=== PATIENT | female | born 2005 | race Caucasian/White ===

== ENCOUNTER 2025-04-09 15:51 | Emergency (ER) | payer BC, SELFPAY ==
[2025-04-09] VITALS (10 sets, daily range): BP systolic 98–131; BP diastolic 66–73; PULSE 80–108; RESP 11–24; O2SAT 98–100
--- NOTE | ~2025-04-09 | XR_ITS ---
EXAMINATION: XR chest 2V DATE: 04/09/2025 16:32 INDICATION: Syncope TECHNIQUE: PA and lateral views of the chest were obtained. COMPARISON: None FINDINGS: The lungs are clear with no focal airspace opacities, pulmonary edema, pleural effusion or pneumothor ax. The cardiomediastinal silhouette is normal. Visualized bones and soft tissues are unremarkable. IMPRESSION: 1. Normal chest radiograph. Reviewed, dictated and finalized at location A. IMPRESSION: 1. Normal chest radiograph.
--- NOTE | 2025-04-09 15:52 | ECG_ITS ---
Test Date: 2025-04-09 16:03:29 Measurements Intervals [place] Rate: 93 P: 75 NE: 118 QRS: 66 QRSD: 74 T: 48 QT: 334 QTc: 417 Interpretive Statements SINUS RHYTHM WITH SHORT NE INTERVAL WITH OCCASIONAL SUPRAVENTRICULAR PREMATURE COMPLEXES POSSIBLE LEFT ATRIAL ENLARGEMENT MINIMAL Q WAVES- ANTEROLAT/INF LEADS BORDERLINE ECG No previous ECG available for comparison Electronically Signed On 04-09-2025 16:15:41 CDT by Gregory Clark D.O.
--- OUTSIDE RECORDS SUMMARY | 2025-04-09 15:53 | XMS_ITS | Continuity of Care Document ---
Author Organization [employer] Address [address] [place] [address] Phone Care Team Providers Care Change Person Name Role Phone Torsten Gee MD Unavailable Unavailable Allergies, Adverse Reactions, Alerts Substance Reaction Status Criticality No Known Allergies Active No Inform ation Medications Medication Instructions Dosage Effective Dates (start - stop) Status Comments DIFFERIN (unknown strength) Not Available - Active Procedures Procedure Date OFFICE [id number] BODY MASS INDEX DOCD MOUTHPIECE RESPIRATORY FLOW VOLUME LOOP SPIROMETRY BEFORE & AFTER BRONCHODIALATO R Advance Directives Directive Yes / No Effective Date File Name No Information Encounters Encounter Description Practice Location Reason(s) For Visit Diagnoses Date Provider Providers Copied on Encounter OFFICE [id number] P-MED [facility], [address], [place], [place], [id number], tel:[phone] [facility] Asthma Allergy [place] breathing difficulty (chief complaint) Vocal cord dysfunction Gerard Sarmiento. [address], [id number] , [place]. tel:[phone] Referring Provider: Emma Diaz, [address] [facility] [address], [place], [address]. tel:[phone] Family History Family Member Type Diagnosis Age At Onset No Information Payers Payer name Insurance type Covered republican ID Authoriza tion(s) [facility] [id number] Social History Type Description Quantity Date Captured Comments Alcohol Use Details Unknown Caffeine Use Details Unknown Tobacco Use Status Current non-smoker Smoking Status Never smoker Non-Smoking Tobacco Use Details : No Details Available : No Details Available Sex Female Vital Signs Date / Time: Height Weight BMI Pulse Rate Blood Pressure Temperature Respiratory Rate Body Surface Area Head Circumference Head Circ. Percentile Wt./Servando. Percentile BMI percentile Pulse Ox Inhaled Ox 1:28 PM 67.00 in 47.627 kg (105.00 lbs) 16.4 5 kg/m eter (2) 86 /min 106/63 mm[Hg] 98.60 F 6 99 % Chief Complaint And Reason For Visit From encounter dated '09/26/2020 13:20'. breathing difficulty (chief complaint) Reason For Referral Reason For Referral No Information History Of Present Illness Encounter Date Complaint History Of Prese nt Illness breathing difficulty breathing difficulty (comments) Trouble breathing with exercise onlyStarted several years ago and usually able to push through thisWorse in the 6 months. Home for COL[place], just starting to play basketball again (has been off track although tries to remain active in other ways)Private lesson with her BB coachAnd within 20 minutes felt like she was going to vomit, dizziness, cross eyes, along with gasping and gulping for air within a few minutes. Tight feeling in her upper airway, no cough, just SOB. Takes about 2 hours to get back to normal. Most episodes last only about 30 minutes though. No stridor, but full body breathing effort with hands on hips, shoulders set. Has trouble swallowing saliva. No accessory muscle use though. Has most of the difficulty on the breath in. No trouble talking with these episodes. No problems during URIs, or at night or awakeningMom recalls she had an inhaler around the age of 4-5 y/o but never seemed to need it. Had been seen in ER and noted low oxygen and fainting episode. May have had an infection at the time. No medications at this time. Wearing a brace for pectus carinatum.Had a normal ECHO a few months ago for rule out Marfan's.No PFTs in past. CXR was recently normal Functional Status Date Functional Assessmen t No Information Instructions Date Instruction Additional Infor maldonado Pulmonary functions performed today with good effort were WITHIN NORMAL LIMITS for age and height with no clipping on the inspiratory loop and no change in expiratory flows following bronchodilator. History and today's findings fit best with vocal cord dysfunction (aka, paradoxical vocal fold movement).Given information on VCD and discussed treatment options including vocal cord relaxation exercise and speech therapy. Overall good prognosis.Will not benefit from asthma therapy/medications.Call if further problems after seeing speech therapy. Related to Vocal cord dysfunction Disease process Assessments Type Assessment Date assessment Vocal cord dysfunction 21 Patient Care Teams Name Effective Dates (start - stop) Status Members No Information
--- OUTSIDE RECORDS SUMMARY | 2025-04-09 15:53 | XMS_ITS | Encounter Summary ---
Author Organization [facility] Address [address] [place], [place] [address] [address] Care Team Providers Care Technical Service Engineer Name Role Phone Emma Diaz MD Primary Care Provider [phone] Emma Diaz MD Unavailable [phone] Encounter Details Date Type Department Care Team (Late st Contact Info) Description 03/02/2025 Results Follow-Up [facility] Medical [facility] - Pediatrics [address] [place] [phone] mEma Diaz MD [address] [place] [phone] Social History Tobacco Use Types Packs/Day Years Used Date Smoking Tobacco: Never Smokeless Tobacco: Never Alcohol Use Standard Drinks/Week Comments No 0 (1 standard drink = 0.6 oz pur e alcohol) PHQ-2 Answer Date Recorded Patient Health Questionnaire-2 Score 0 11/19/2023 Comments Unknown Sex and Gender Information Value Date Recorded Sex Assigned at Not on file 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 Author Medication Management General Cookie Rodriguez, RN Note: Expected end date: Ongoing Interventions: Take all medications as prescribed Let your doctor know right away about any changes in your medications Make sure to request a refill of your medication at least one week prior to your last dose Use safety retraint in car Lifestyle On track( 022 1:47 PM CDT) Yvonne Winter, [place] documented as of this encounter Visit Diagnoses Not on filedocumented in this encounter Care Teams Technical Service Engineer Relationship Specialty Start Date End Date Emma Diaz MD PCP - General 06/08/20 Emma Diaz MD Pediatrics 06/08/20 documented as of this encounter
--- OUTSIDE RECORDS SUMMARY | 2025-04-09 15:53 | XMS_ITS | Encounter Summary ---
Author Organization [facility] Address [address] [place] [address] [place] [address] Care Team Providers Care Edge Cutting Machine Operator Name Role Phone Emma Diaz MD Primary Care Provider [phone] Emma Diaz MD Unavailable Reason for Visit * Reason Comments Medication Check control Encounter Details Date Type Department Care Team (Late st Contact Info) Description 04/08/2025 11:20 AM CDT Office Visit [facility] Medical [facility] - Pediatrics [address] [place] [address] [address] [place] [address] Emma Diaz MD [address] [place] [address] Anemia, unspecified type (Primary Dx); Syncope, unspecified syncope type; Closed fracture of left side of mandible with routine healing, unspecified mandibular site, subsequent encounter; Dermatitis Social History Tobacco Use Types Packs/Day Years Used Date Smoking Tobacco: Never Smokeless Tobacco: Never Alcohol Use Standard Drinks/Week Comments No 0 (1 standard drink = 0.6 oz pur e alcohol) PHQ-2 Answer Date Recorded Patient Health Questionnaire-2 Score 0 04/08/2025 Comments Unknown Sex and Gender Information Value Date Recorded Sex Assigned at Not on file 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 Gender Identity Not on file Sexual Orientation Not on file documented as of this encounter Last Filed Vital Signs Vital Sign Reading Time Taken Comments Blood Pressure 114/62 04/08/2025 11:17 AM CDT Pulse 115 04/08/2025 11:17 AM CDT Temperature 36 C (96.8 F) 04/08/2025 11:17 AM CDT Respiratory Rate - - Oxygen Saturation 99% 04/08/2025 11: 17 AM CDT Inhaled Oxygen Concentration - - Weight 51.2 kg (112 lb 12.8 oz) 025 11:17 AM CDT Height 171.5 cm (5' 7.52) 04/08/2025 1 1:17 AM CDT Body Mass Index 17.4 04/08/2025 11:17 AM CDT documented in this encounter Functional Status * Over the past 2 weeks, how often have you been bothered by any of the following problems? Question Answer Date of Assessment Author Little interest or pleasure in doing things Not at all 04/08/2025 11:18 AM CDT Uyen Wiley MA Feeling down, depressed, or hopeless Not at all 04/08/2025 11:18 AM CDT Uyen Wiley MA Patient Health Questionnaire -2 Score 0 04/08/2025 11:18 AM CDT Uyen Wiley MA documented as of this encounter Progress Notes * Emma Diaz MD - 04/08/2025 11:16 AM CDT Pediatric Progress Note Name: Estrella Toure Date of : 2005 Sex: female Age: [age] year old Accompanied by: self Chief Complaint: Chief Complaint Patient presents with Medication Check control History of Present Illness: Estrella Toure, 19 year old, female, here for f/u evaluation of syncope, anemia, dermatitis, and new OCP. Estrella reports dermatitis improved with triamcinolone, no side effects of OCP, and no light-headedness this summer. She began iron supplement in last couple weeks. No new concerns. Medications: Lo-ovral and iron supplement. Problem List[1] Medications[2] Review of Systems: Pertinent items are noted in HPI Allergies[3] Past Medical History[4] EXAM: Vitals: BP 114/62 Pulse (!) 115 Temp 96.8 ??F (36 ??C) Ht 1.715 m (5' 7.52) Wt 51.2 kg (112 lb 12.8 oz) LMP 04/07/2025 SpO2 99% BMI 17.40 kg/m?? Height: 171.5 cm (5' 7.52) Immunizations Up to date: Yes Physical Exam: PE: BP 114/62 Pulse (!) 115 Temp 96.8 ??F (36 ??C) Ht 1.715 m (5' 7.52) Wt 51.2 kg (112 lb 12.8 oz) SpO2 99% General alert, cooperative, no distress Skin Skin color, texture, turgor normal. No rashes or lesions Head NCAT Eyes/Ears sclera and conjunctiva clear bilateral TM's and external ear canals normal Nose/ Throat nose:normal, throat: no erythema or exudates noted. Teeth and gums normal Neck supple, non-tender, with full ROM Nodes no lymphadenopathy Heart regular rate and rhythm, S1, S2 normal, no murmur, click, rub or gallop Lungs clear to auscultation bilaterally Abdomen soft, non-tender, non distended Extremities no cyanosis, edema Office Visit on 04/08/25 HEMOGLOBIN - POINT OF CARE (AMB) Result Value Ref Range Hemoglobin POCT 9.3 (Abnormal) 11.6 - 16.2 gm/dL QC Verified Yes Yes Assessment Plan: 1) Dermatitis - improved with trial 0.1% triamcinolone to bumps on right posterior elbow. Discussedregular applications of moisturizer to prevent recurrence. 2) Menorrhagia - patient tolerating Lo Ovral well. OCP to manage heavy periods and hopefully improve anemia. Referred to Manager Of Enterprise. Will refill for the next 6 months until patient is able to establish withGyn (3 mos supply sent today to cover while away at school) 3) Anemia - symptomatic anemia may be treated with otc Ferrous Sulfate. Will begin with 1 tab po qd, taken with orange juice. Recheck Hgb at f/u visit in August. 4) Syncopal Episode - lack of contributing factors of illness, antecedent trauma, or substance abuse, paired with concurrent menses, make anemia the most likely cause. Will monitor symptoms and consider further evaluation if improvement not noted. 5) Mandibular Fracture and Dental Trauma - ongoing work with local oral surgeon. Patient instructed to call with any concerns or if problems fail to improve with treatment plan. Emma Diaz MD [1] Patient Active Problem List: Vocal cord dysfunction [2] Outpatient Medications Prior to Visit Medication Sig Dispense Refill acetaminophen-codeine (Tylenol #4) 300-60 MG tablet Take 1 (one) tablet by mouth every 6 hours as needed (Patient not taking: Reported on 04/08/2025) amoxicillin-clavulanate (Augmentin) 875-125 MG tablet TAKE 1 TABLET BY MOUTH TWICE DAILY UNTIL GONE(Patient not taking: Reported on 04/08/2025) chlorhexidine (Peridex) 0.12 % solution SWISH AND SPIT 10-15 ML TWICE DAILY HYDROcodone-acetaminophen 7.5-325 MG/15ML solution TAKE 5-10 MLS (2.5-5 MG TOTAL) BY MOUTH EVERY 4 TO 6 HOURS NEEDED FOR PAIN (Patient not taking: Reported on 04/08/2025) ibuprofen (Motrin) 800 MG tablet TAKE 1 TABLET BY MOUTH EVERY 6 HOURS WITH FOOD (Patient not taking: Reported on 04/08/2025) norgestrel-ethinyl estradiol (Lo/Ovral; Low-Ogestrel; Cryselle) 0.3-30 MG-MCG tablet Take 1 (one) tablet by mouth once daily 28 tablet 1 promethazine (Phenergan) 25 MG tablet TAKE 1 TABLET BY MOUTH 1 HOUR PRIOR TO APPOINTMENT THEN 1 TABLET EVERY 6 HOURS NEEDED (Patient not taking: Reported on 04/08/2025) triamcinolone acetonide (Kenalog) 0.1 % ointment Apply to affected area 2 times daily 60 g 0 No facility-administered medications prior to visit. [3] No Known Allergies [4] No past medical history on file. documented in this encounter Plan of Treatment Upcoming Encounters Date Type Department Care Team (Late st Contact Info) Description 05/24/2025 3:30 PM CDT Office Visit [facility] - [address] [place] [phone] documented as of this encounter Goals Goal Patient Goal Type Associated Problems Recent Progress Patient-Stated? Author Medication Management General No Cookie Griffin, RN Note: Expected end date: Ongoing Interventions: Take all medications as prescribed Let your doctor know right away about any changes in your medications Make sure to request a refill of your medication at least one week prior to your last dose Use safety retraint in car Lifestyle On track( 022 1:47 PM CDT) Yvonne Winter RN documented as of this encounter Procedures Procedure Name Priority Date/Time Associated Diagnosis Comments HEMOGLOBIN - POINT OF CARE (AMB) OK Routine 04/08/2025 11:22 AM CDT Anemia, unspecified type documented in this encounter Results * (ABNORMAL) HEMOGLOBIN - POINT OF CARE (AMB) (04/08/2025 11:22 AM CDT) Hemoglobin POCT 9.3(A) 11.6 - 16.2 gm/dL [facility] QC Verified Yes Yes [facility] Blood BLOOD SPECIMEN / Unknown 04/08/2025 11:22 AM CDT Emma Diaz MD LAB - POINT OF CARE ORDERABLE S Final Result [facility] [address] [phone] documented in this encounter Visit Diagnoses Diagnosis Anemia, unspecified type- Primary Syncope, unspecified syncope type Closed fracture of left side of mandible with routine healing, unspecified mandibular site, subsequent encounter Dermatitis Contact dermatitis and other eczema, due to unspecified cause documented in this encounter Care Teams Edge Cutting Machine Operator Relationship Specialty Start Date End Date Emma Diaz MD PCP - General 06/08/20 Emma Diaz MD Pediatrics 06/08/20 documented as of this encounter
--- OUTSIDE RECORDS SUMMARY | 2025-04-09 15:53 | XMS_ITS | Clinical Summary ---
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 Gender Identity Not on file Sexual Orientation Not on file Plan of Treatment Health Maintenance Due Date Last Done Comments Hepatitis C Virus (HCV) Screening 2005 Human Papillomavirus (HPV) Immunization (1 - 3-dose series) 2020 Meningococcal B Immunization (1 of 2 - Standard) 2021 SARS-COV-2 Immunization ( - season) 2024 02/21/2021, 01/31/2021 Influenza Immunization (#1) 2025 05/27/2008, 1 Respiratory Syncytial Virus (RSV) Immunization (Adult) (1 - 1-dose 75+ series) 2080 Hepatitis B Immunization Completed 006, 02/14/2006, 2005 Polio (IPV) Immunization Discontinued 006, 02/14/2006, 2005 Pneumococcal Immunization Combined Completed 10/24/2006, 04/25/2006, 02/14/2006, Additional history exists Hepatitis A Immunization Discontinued 05/12/2007, 10/04 Measles Mumps Rubella (MMR) Immunization Discontinued 11/06/2010, 10/24/2006 Varicella Immunization Discontinued 11/06/2010, 2006 DTaP/Tdap/Td Immunization Discontinued 2016, 11/06/2010, 01/28/2007, Additional history exists Meningococcal Immunization (ACWY) Aged Out 01/31/2017 No longer eligible based on patient's age to complete this topic TdaP Immunization Completed 01/31/2017 Rotavirus Immunization Aged Out No lo nger eligible based on patient's age to complete this topic
--- OUTSIDE RECORDS SUMMARY | 2025-04-09 15:53 | XMS_ITS | Encounter Summary ---
Author Organization [facility] Address [facility] [facility] [place] [address] Care Team Providers Care Vp Clinical Name Role Phone Emma Diaz MD Primary Care Provider [phone] Emma Diaz MD Unavailable [phone] Reason for Visit * Reason Onset Date Comments Follow-up 04/09/2025 Encounter Details Date Type Department Care Team (Late st Contact Info) Description 04/09/2025 Nurse Triage [facility] Medical [facility] - Pediatrics [address] [place] [address] [address] [place] [address] Emma Diaz MD [address] [place] [phone] Follow-up Social History Tobacco Use Types Packs/Day Years Used Date Smoking Tobacco: Never Smokeless Tobacco: Never Alcohol Use Standard Drinks/Week Comments No 0 (1 standard drink = 0.6 oz pur e alcohol) PHQ-2 Answer Date Recorded Patient Health Questionnaire-2 Score 0 04/08/2025 Comments Unknown Sex and Gender Information Value Date Recorded Sex Assigned at Not on file 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 Was she feeling well, playing pickle ball, and then had a second collapse with loss of consciousness? That may be best addressed in theER today and include an EKG. Reached patient again. She states that yesterday afternoon was playing pickle ball for 20 min with mild intensity-all of asudden felt dizzy-patient told friends that she was was going to sit down and does not remember what happened next. Woke up with friends standing over her. LOC lasted for 34 seconds per friends that were with her and Estrella states that her friends told her that her mouth twisted while was out and legs jerked. No care sought at time of incident or since and no sxs since incident and no sxs at this time. Patient in agreement that will go to ED at this time for assessment and follow up as directed-this update sent to Dr. Diaz. * Telephone Encounter - Beatriz Mitchell RN - 04/09/2025 1:[address] Diaz: I would suggest doubling her iron supplementation this month unless it causes G.I. upset. If she had a true loss of consciousness last night, I think we should get an EKG as well. Patient reached again. Verbalizes understanding of orders related to iron and states that yes was a LOC-would like the EKG. Consulting with Dr. Diaz on where would like to send order/can we complete in office or should werefer to cardiology? This note transferred-awaiting orders.... * Telephone Encounter - Beatriz Mitchell RN - 04/09/2025 12:16 PM CDT Patient states that she is not having sxs now but calling to report LOC/fainting while playing pickle ball last night. Lasted for 34 seconds. Again denies sxs at this time. Patient seen in office yesterday and syncope and anemia discussed and plan of care est with PCP. Reviewed in office plan of care as noted by Dr. Diaz with patient during call. Patient verbalizes understanding of plan of care. This note sent to Dr. Diaz (PCP) and in office provider (SUPERVISOR [employer] Himanshu) for update and to determine ifany changes to plan or additional orders.... documented in this encounter Plan of Treatment Upcoming Encounters Date Type Department Care Team (Late st Contact Info) Description 05/24/2025 3:30 PM CDT Office Visit [facility] - [address] [phone] documented as of this encounter Goals Goal [...] track( 022 1:47 PM CDT) Yvonne Winter, RN documented as of this encounter Visit Diagnoses Not on filedocumented in this encounter Care Teams Vp Clinical Relationship Specialty Start Date End Date Emma Diaz MD PCP - General 06/08/20 Emma Diaz MD Pediatrics 06/08/20 documented as of this encounter
--- OUTSIDE RECORDS SUMMARY | 2025-04-09 15:53 | XMS_ITS | Clinical Summary ---
Author Organization [facility] Address [address] [place] [address] Care Team Providers Care Denture Processor Name Role Phone Emma Diaz MD Primary Care Provider [phone] Emma Diaz MD Unavailable [phone] Source Comments [facility],non-owned Affiliates and Associated Physician Practices is amultiple site organization consisting of ambulatory clinics and hospital sitesin [place], [place], [place] and [place]. This disclosure is being madepursuant to the Care Everywhere program and may not contain all information available regarding this patient. Last updated 18.[facility] [employer] Allergies No known active allergies Medications * Be aware that medications may not be up to date on this document. Alwaysverify current medications with the patient. triamcinolone acetonide (Kenalog) 0.1 % ointment Apply to affected area 2 times daily 60 g 5 Active norgestrel-ethi nyl estradiol (Lo/Ovral; Low-Ogestrel; Cryselle) 0.3-30 MG-MCG tablet Take 1 (one) tablet by mouth once daily 28 tablet 1 5 Active acetaminophen-c odeine (Tylenol #4) 300-60 MG tablet Take 1 (one) tablet by mouth every 6 hours as needed 4 Active amoxicillin-cla vulanate (Augmentin) 875-125 MG tablet TAKE 1 TABLET BY MOUTH TWICE DAILY UNTIL GONE 5 Active chlorhexidine (Peridex) 0.12 % solution SWISH AND SPIT 10-15 ML TWICE DAILY 5 Active HYDROcodone-guy taminophen 7.5-325 MG/15ML solution TAKE 5-10 MLS (2.5-5 MG TOTAL) BY MOUTH EVERY 4 TO 6 HOURS NEEDED FOR PAIN 5 Active ibuprofen (Motrin) 800 MG tablet TAKE 1 TABLET BY MOUTH EVERY 6 HOURS WITH FOOD 4 Active promethazine (Phenergan) 25 MG tablet TAKE 1 TABLET BY MOUTH 1 HOUR PRIOR TO APPOINTMENT THEN 1 TABLET EVERY 6 HOURS NEEDED 4 Active norgestrel-ethi nyl estradiol (Lo/Ovral; Low-Ogestrel; Cryselle) 0.3-30 MG-MCG tablet Take 1 (one) tablet by mouth once daily 84 tablet 4 5 Active Active Problems Problem Noted Date Diagnosed Date Vocal cord dysfunction 08/30/2022 Encounters Date Type Department Care Team Description 04/09/2025 Nurse Triage [address] [address] Emma Diaz MD Follow-up 04/08/2025 11:20 AM CDT Office Visit [address] [address] Emma Diaz MD Anemia, unspecified type (Primary Dx); Syncope, unspecified syncope type; Closed fracture of left side of mandible with routine healing, unspecified mandibular site, subsequent encounter; Dermatitis 03/02/2025 11:00 AM CDT Office Visit [address] [address] Emma Diaz MD Well adolescent visit (Primary Dx); Syncope, unspecified syncope type; Anemia, unspecified type; Dermatitis; Closed fracture of left side of mandible with routine healing, unspecified mandibular site, subsequent encounter; Chronic abdominal pain 03/02/2025 Results Follow-Up [address] [address] Emma Diaz MD 02/26/2025 Travel 02/16/2025 Travel 02/12/2025 Travel 02/12/2025 Nurse Triage [facility] - Pediatrics [address] [place] [phone] Emma Diaz MD Appointment 02/11/2025 Telephone [facility] - Pediatrics [address] [place] [address] Emma Diaz MD Appointment 02/08/2025 3:30 PM CDT Office Visit [facility] - [address] [phone] Emma Diaz MD Abdominal bloating (Primary Dx); Gastroesophageal reflux disease with esophagitis without hemorrhage; Generalized abdominal pain; Constipation, unspecified constipation type; Underweight (BMI < 18.5) 02/08/2025 Travel from Last 3 Months Immunizations Immunization Administration Dates Next Due Indicative Software primary monoval ent 12+ yr 0.3mL Purple cap 02/21/2021,01/31/2021 DTAP, HISTORIC VACCINE 11/06/2010,01/28/2007 DTAP/HEP B/IPV 04/25/2006,02/14/2006,2005 HEP A PED/ADULT VACCINE 05/12/2007,10/24/2006 HIB VACCINE 01/28/2007,02/14/2006,2005 Human Papilloma Virus Nineva lent Vaccine 05/28/2022,05/05/2020 INFLUENZA VACCINE 05/27/2008,06/18/2007 MENINGOCOCCAL ACWY MENVEO 01/31/2017 MENINGOCOCCAL B RECOMBINANT, 2 OR 3 DOSE, IM 05/28/2022 MMR VACCINE 11/06/2010,10/24/2006 Meningococcal ACWY (Menquadfi) Vac IM 05/28/2022 Meningococcal B Recombinant 2 Dose, IM 4 POLIO,HISTORIC VACCINE 11/06/2010 Pneumococcal Pcv13 Conj 10/24/2006,04/25,02/14/2006,12/17 TDAP, HISTORIC VACCINE 01/31/2017 VARICELLA 11/06/2010,10/24/2006 Family History Medical History Relation Name Comments Diabetes; unknown type Father Eczema Father CVA Maternal Grandfather Hypertension Maternal Grandfather Cancer Maternal Grandmother Thyroid Disease Mother Cancer Paternal Grandmother Relation Name Status Comments Father Maternal Grandfather Maternal Grandmother Mother Paternal Grandmother Social History Tobacco Use Types Packs/Day Years Used Date Smoking Tobacco: Never Smokeless Tobacco: Never Alcohol Use Standard Drinks/Week Comments No 0 (1 standard drink = 0.6 oz pur e alcohol) PHQ-2 Answer Date Recorded Patient Health Questionnaire-2 Score 0 04/08/2025 Comments Unknown Sex and Gender Information Value Date Recorded Sex Assigned at Not on file 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 Gender Identity Not on file Sexual Orientation Not on file Last Filed Vital Signs Vital Sign Reading Time Taken Comments Blood Pressure 114/62 04/08/2025 11:17 AM CDT Pulse 115 04/08/2025 11:17 AM CDT Temperature 36 C (96.8 F) 04/08/2025 11:17 AM CDT Respiratory Rate 24 11/26/2014 11:0 0 AM CDT Oxygen Saturation 99% 04/08/2025 11: 17 AM CDT Inhaled Oxygen Concentration - - Weight 51.2 kg (112 lb 12.8 oz) 025 11:17 AM CDT Height 171.5 cm (5' 7.52) 04/08/2025 1 1:17 AM CDT Body Mass Index 17.4 04/08/2025 11:17 AM CDT Plan of Treatment Upcoming Encounters Date Type Department Care Team (Late st Contact Info) Description 05/24/2025 3:30 PM CDT Office Visit [facility] - GI [address] [facility] [place] [address] Health Maintenance Due Date Last Done Comments HIV SCREENING 2020 CHLAMYDIA/GONORRHEA SCREENING 2021 HEPATITIS C SCREENING 10/10/2023 MENINGOCOCCAL (Group B) VACC INE SHARED DECISION-MAKING (2 of 2 - Trumenba SCDM 2-dose series) 03/20/2024 11/19/2023, 05/28/2022 COVID-19 VACCINE ( - 2023-2 5 season) 2024 02/21/2021, 01/31/2021 INFLUENZA VACCINE (#1) 2025 05/27/2008, 2006 DTAP/TDAP/TD VACCINES (7 - T d or Tdap) 01/31/2027 01/31/2017, 11/06/2010, 01/28/2007, Additional history exists ZOSTER VACCINE (1 of 2) 2055 HEPATITIS B VACCINE Completed 04/25/2006, 02/14/2006, 2005 PNEUMOCOCCAL VACCINE Completed 10/24/2006, 04/25/2006, 02/14/2006, Additional history exists HIB VACCINE Completed 01/28/2007, 01/31, 2005 HPV VACCINE Completed 05/28/2022, 05/05/2020 MENINGOCOCCAL GROUPS A/C/Y/W VACCINE Completed 05/28/2022, 01/31/2017 DEPRESSION SCREENING Completed 04/08/2025, 11/19/2023, 05/28/2022 Goals Goal Patient Goal Type Associated Problems [...] Lifestyle On track( 022 1:47 PM CDT) No Yvonne Gan, traffic personnel supervisor Procedure Name Priority Date/Time Associated Diagnosis Comments HEMOGLOBIN - POINT OF CARE (AMB) OK Routine 04/08/2025 11:22 AM CDT Anemia, unspecified type HEMOGLOBIN - POINT OF CARE (AMB) Routine 03/02/2025 11:26 AM CDT Syncope, unspecified syncope type CELIAC DISEASE PROFILE W RFLX Routine 02/17/2025 1:12 PM CDT Abdominal bloating Generalized abdominal pain Underweight (BMI < 18.5) from Last 3 Months Results * (ABNORMAL) HEMOGLOBIN - POINT OF CARE (AMB) (04/08/2025 11:22 AM CDT) Pathologist [facility] Hemoglobin POCT 9.3(A) 11.6 - 16.2 gm/dL [facility] QC Verified Yes Yes [facility] Blood BLOOD SPECIMEN / Unknown 04/08/2025 11:22 AM CDT Emma Diaz MD LAB - POINT OF CARE ORDERABLE S Final Result Performing Organization Address City/[facility]/ZIP Co de Phone Number [facility] [address] [phone] * (ABNORMAL) HEMOGLOBIN - POINT OF CARE (AMB) (03/02/2025 11:26 AM CDT) [facility] Hemoglobin POCT 9.6(A) 12.0 - 15.0 gm/dL [facility] Blood BLOOD SPECIMEN / Unknown 03/02/2025 11:26 AM CDT Emma Diaz MD LAB - POINT OF CARE ORDERABLE S Final Result Performing Organization Address [facility] Co de Phone Number [facility] [address] [phone] * CELIAC DISEASE PROFILE W RFLX (02/17/2025 1:12 PM CDT) Pathologist [facility] Gliadin Deamidated Peptide Antibody IgA <1.0 U/mL [facility] Comment: Units Value Interpretation <15.0 Antibody not detected > or = 15.0 Antibody detected Gliadin Deamidated Peptide Antibody IgA 1.3 U/mL [facility] Comment: Units Value Interpretation <15.0 Antibody not detected > or = 15.0 Antibody detected TTG Antibody IgG <1.0 U/mL [facility] Comment: Units Value Interpretation <15.0 Antibody not detected > or = 15.0 Antibody detected TTG Antibody IgA <1.0 U/mL [facility] Comment: Units Value Interpretation <15.0 Antibody not detected > or = 15.0 Antibody detected Endomysial Antibody IgA NEGATIVE NEGATIVE [facility] Endomysial Antibody Titer TNP titer [facility] Comment: Test Not Performed. Screening test Negative or Not Detected. Titer not performed. IgA 202 47 - 310 mg/dL [facility] Comment: REPORT COMMENT: INSURANCE ON PHONE FASTING:NO Test Performed at: [facility] [address] [place] [address] ARETHA CHAVIS MD,PHD,TIMOTHY Blood BLOOD SPECIMEN / Unknown 02/17/2025 1:12 PM CDT 02/17/2025 1:13 PM CDT us Emma Diaz MD LAB - CHEMISTRY ORDERABLES nal Result [facility] [id number] [place] [address] from Last 3 Months Insurance [facility] Care Teams Denture Processor Relationship Specialty Start Date End Date Emma Diaz MD PCP - General 06/08/20 Emma Diaz MD Pediatrics 06/08/20
[2025-04-09 16:05] LABS: BEDSIDEPREGUCG Negative (Negative)
[2025-04-09 16:15] LABS: Hematocrit 32.6 % (37.0-47.0); Hemoglobin 9.3 g/dL (12.0-15.0); Immature Granulocyte Percent A 0.2 % (0-0.5); Immature Platelet Fraction Pct 5.3 % (0.9-11.2); Lymphocytes Absolute Auto 1.84 K/mm3 (0.9-3.2); Mean Corpuscular HGB Conc 28.5 g/dl (32-36); Mean Corpuscular Hemoglobin 19.8 pg (26-34); Mean Corpuscular Volume 69.5 fl (80-100); Nucleated Red Blood Cells Absolute Auto 0.000 K/mm3 (0.0-0.012); Nucleated Red Blood Cells Perc 0.0 % (0.0-0.2); Platelet Count Result 268 k/mm3 (150-375); Red Blood Count 4.69 M/mm3 (4.2-5.4); White Blood Count 4.7 K/mm3 (4.5-10.0)
[2025-04-09 16:29] LABS: Alanine Aminotransferase 17 U/L (6-35); Albumin Level 4.4 g/dL (3.7-5.6); Alkaline Phosphatase 43 U/L (45-116); Anion Gap 10 mmol/L (4-12); Aspartate Amino Transferase 22 U/L (14-36); Bilirubin,Total 0.1 mg/dL (0.2-1.3); Blood Urea Nitrogen 16 mg/dL (8-21); Calcium 9.3 mg/dL (8.9-10.7); Carbon Dioxide 21 mmol/L (22-30); Chloride 108 mmol/L (98-107); Estimated Glomerular Filt Rate > 60; Glucose 119 mg/dL (65-110); Potassium 4.2 mmol/L (3.4-5.0); Sodium 139 mmol/L (134-143); Total Protein 8.0 g/dL (6.3-8.6)
[2025-04-09] MEDS: SODIUM CHLORIDE 0.9% IV 1,000 ML 999 ML IV CONT (16:34)
[2025-04-09 16:50] LABS: Hypochromasia 1+; Microcytosis 1+ (NORMAL)
[2025-04-09 16:51] LABS: Anisocytosis 2+; Band Neutrophils Percent 0 % (0-6)
[2025-04-09 16:52] LABS: Schistocytes None Seen
--- NOTE | 2025-04-09 16:56 | ED.SYNCOPE ---
HPI - Syncope General Chief Complaint: Syncope Stated Complaint: fainting Time Seen by Provider: 04/09/25 15:57 History of Present Illness HPI narrative: Patient is a 19-year-old female who presents ER after having a syncopal episode yesterday. Her doctor wanted her to get an EKG. Patient has history of menorrhagia. She has recently started on control. She started her menstrual cycle 2 days ago and is currently on day 3. She has had 12 saturated ultra tampons over last 24 hours. She was playing [employer] ball yesterday for 20 minutes outside in the evening and it was warm. She then suffered loss of consciousness and her friend saw her twitching and convulsing. No loss of urine. No tongue biting. Has history of syncope in the past when she was younger and had a normal echocardiogram. She is known to be anemic and has started some iron. No prodrome of chest pain or racing of the heart. She did hit her chin but no break in skin. No headache. Review of Systems Review of Systems: All systems reviewed & are unremarkable except as noted in HPI and below Constitutional: Constitutional: Reports no additional constitutional complaints ENT: Reports system reviewed and no additional complaints, except as documented Cardiovascular: Cardiovascular: Reports no additional cardiovascular complaints Respiratory: Respiratory: Reports no additional respiratory complaints Neurologic: Reports system reviewed and no additional complaints, except as documented PMFSH Past Medical History Medical History (Updated 04/09/25 @ 17:01 by Mihai Farr MD) Menorrhagia Anemia Family History Family History (Updated 12/10/18 @ 15:04 by DOCTOR UNKNOWN) Father Diabetes mellitus Exam Narrative: GENERAL: Well-appearing, well-nourished, and in no acute distress. HEAD: Normocephalic, atraumatic. EYES: PERRL and EOMI. Normal conjunctiva. ENT: Mucous membranes moist. NECK: Supple. CHEST: Clear to auscultation. No respiratory distress. HEART: Regular rate and rhythm. Normal peripheral pulses. ABDOMEN: Soft, nontender, nondistended. EXTREMITIES: Normal range of motion. No edema. SKIN: Warm, dry, no rash. NEURO: Alert and oriented x3. Course Course Emergency Course: Patient was orthostatic in the ER. She received IV fluid. Hemoglobin 9.3. Recommend oral iron at home and hydration. Continue follow-up with her physician for outpatient management. Vital Signs Vital signs: Vital Signs Pulse Rate 91 04/09/25 16:04 Respiratory Rate 24 H 04/09/25 16:04 Blood Pressure 111/70 04/09/25 16:04 Pulse Oximetry 98 04/09/25 16:04 Oxygen Delivery Room Air 04/09/25 16:04 Pulse Rate 94 04/09/25 17:21 Respiratory Rate 15 04/09/25 17:00 Blood Pressure 128/70 04/09/25 17:21 Pulse Oximetry 100 04/09/25 17:00 Oxygen Delivery Room Air 04/09/25 16:04 MDM - Syncope Lab Data 04/09/25 16:02 04/09/25 16:02 Labs: Lab Results 04/09/25 04/09/25 Range/Units 16:02 16:03 WBC 4.7 (4.5-10.0) K/mm3 RBC 4.69 (4.2-5.4) M/mm3 Hgb 9.3 L (12.0-15.0) g/dL Hct 32.6 L (37.0-47.0) % MCV 69.5 L (80-100) fl MCH 19.8 L (26-34) pg MCHC 28.5 L (32-36) g/dl RDW 17.8 H (11.5-14.5) % Plt Count 268 (150-375) k/mm3 MPV 10.7 H (7.4-10.4) fl Immature Gran % (Auto) 0.2 (0-0.5) % Neut % (Auto) 49.2 (45.5-73.1) % Lymph % (Auto) 39.0 (18.3-44.2) % Rolette % (Auto) 9.1 H (2.6-8.5) % Eos % (Auto) 1.7 (0-4.4) % Baso % (Auto) 0.8 (0.2-1.2) % Lymph # (Auto) 1.84 (0.9-3.2) K/mm3 Rolette # (Auto) 0.4 (0.1-0.6) K/mm3 Eos # (Auto) 0.1 (0-0.3) K/mm3 Baso # (Auto) 0.0 (0.0-0.1) K/mm3 Abs Immat Gran (auto) 0.01 (0.00-0.031) K/mm3 Absolute Neuts (auto) 2.3 (1.3-6.7) K/mm3 Absolute Nucleated RBC 0.000 (0.0-0.012) K/mm3 Band Neutrophils % 0 (0-6) % Nucleated RBC % 0.0 (0.0-0.2) % Platelet Estimate Adequate (Adequate) % Immature Plt Fraction 5.3 (0.9-11.2) % Hypochromasia 1+ Anisocytosis 2+ Microcytosis 1+ (NORMAL) Schistocytes None seen Sodium 139 (134-143) mmol/L Potassium 4.2 (3.4-5.0) mmol/L Chloride 108 H (98-107) mmol/L Carbon Dioxide 21 L (22-30) mmol/L Anion Gap 10 (4-12) mmol/L BUN 16 (8-21) mg/dL Creatinine 0.77 (0.7-1.0) mg/dL Estim Creat Clear Calc Not Reportable Estimated GFR > 60 (59 - ) Glucose 119 H (65-110) mg/dL Calcium 9.3 (8.9-10.7) mg/dL Total Bilirubin 0.1 L (0.2-1.3) mg/dL AST 22 (14-36) U/L ALT 17 (6-35) U/L Alkaline Phosphatase 43 L (45-116) U/L Total Protein 8.0 (6.3-8.6) g/dL Albumin 4.4 (3.7-5.6) g/dL POC Urine HCG, Qual Negative (Negative) Imaging Data Radiologist's impression: ITS Impressions Chest X-Ray 04/09/25 16:38 IMPRESSION: 1. Normal chest radiograph. ECG Data EKG #1: ECG completion date: 04/09/25 ECG completion time: 16:03 EKG Interpretation: normal rate (93), sinus rhythm, PACs, normal QRS, normal QT and NL axis Discharge Plan Discharge Clinical Impression: Orthostatic syncope, Anemia Patient Disposition: Home Condition: Stable Instructions: Iron Rich Diet (ED), Syncope (ED), Anemia (ED) Additional Instructions: Return the ER for recurrent loss of consciousness, you develop chest pain shortness of breath, you have severe lower abdominal pain, or you have additional concerns. Patient Language: Greenlandic Follow-up/Referrals: Emma Diaz MD [Primary Care Provider] - 1 Week
--- OUTSIDE RECORDS SUMMARY | 2025-04-09 17:46 | XMS_ITS | Encounter Summary ---
Author Organization [facility] Address [facility] [place] [address] Care Team Providers Care Fish Bait Processing Supervisor Name Role Phone Emma Diaz MD Primary Care Provider [phone] Emma Diaz MD Unavailable [phone] Reason for Visit * Reason Onset Date Comments Follow-up 04/09/2025 Encounter Details Date Type Department Care Team (Late st Contact Info) Description 04/09/2025 Nurse Triage [facility] Medical [facility] - Pediatrics [address] [place] [address] [address] [place] [address] Emma Diaz MD [address] [place] [address] Follow-up Social History Tobacco Use Types Packs/Day Years Used Date Smoking Tobacco: Never Smokeless Tobacco: Never Alcohol Use Standard Drinks/Week Comments No 0 (1 standard drink = 0.6 oz pur e alcohol) PHQ-2 Answer Date Recorded Patient Health Questionnaire-2 Score 0 04/08/2025 Comments Unknown Sex and Gender Information Value Date Recorded Sex Assigned at Not on file 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 The first episode resulted in significant injury (broken jaw) and was not fully evaluated as to the cause. Yes-advised patient to request labs and EKG at ED-advised ED over [facility] or convenient care and keeping note open to wait on follow up plan of care. * Telephone Encounter - Beatriz Mitchell RN [...] per friends that were with her and sEtrella states that her friends told her that [...] Dr. Diaz (PCP) and in office provider (ELOISA Downs) for update and to determine ifany changes to plan or additional orders.... documented in this encounter Plan of Treatment Upcoming Encounters Date Type Department Care Team (Late st Contact Info) Description 05/24/2025 3:30 PM CDT Office Visit [facility] - [address] [facility] [place] [address] documented as of this encounter Goals Goal Patient Goal Type Associated Problems Recent Progress Patient-Stated? Author Medication Management General No Cookie Griffin RN Note: Expected end date: Ongoing Interventions: Take all medications as prescribed Let your doctor know right away about any changes in your medications Make sure to request a refill of your medication at least one week prior to your last dose Use safety retraint in car Lifestyle On track( 022 1:47 PM CDT) Yvonne Winter RN documented as of this encounter Visit Diagnoses Not on filedocumented in this encounter Care Teams Fish Bait Processing Supervisor Relationship Specialty Start Date End Date Emma Diaz MD PCP - General 06/08/20 Emma Diaz MD Pediatrics 06/08/20 documented as of this encounter
--- OUTSIDE RECORDS SUMMARY | 2025-04-09 17:46 | XMS_ITS | Continuity of Care Document ---
Author Organization [facility] Address [address] [place] [address] Phone Care Team Providers Care Cell Tuber Hand Name Role Phone Torsten Gee MD Unavailable Unavailable Allergies, Adverse Reactions, Alerts Substance Reaction Status Criticality No Known Allergies Active No Inform ation Medications Medication Instructions Dosage Effective Dates (start - stop) Status Comments DIFFERIN (unknown strength) Not Available - Active Procedures Procedure Date OFFICE [id number]-MED BODY MASS INDEX DOCD MOUTHPIECE RESPIRATORY FLOW VOLUME LOOP SPIROMETRY BEFORE & AFTER BRONCHODIALATO R Advance Directives Directive Yes / No Effective Date File Name No Information Encounters Encounter Description Practice Location Reason(s) For Visit Diagnoses Date Provider Providers Copied on Encounter OFFICE [id number], [address], [place], [place], [id number], tel:[phone] [facility] [place] breathing difficulty (chief complaint) Vocal cord dysfunction Gerard Sarmiento. [address], [id number] , [place]. tel:[phone] Referring Provider: Emma Diaz, [address] [facility] [address], [place], [address]. tel:[phone] Family History Family Member Type Diagnosis Age At Onset No Information Payers Payer name Insurance type Covered green party ID Authoriza tion(s) [facility] [id number] Social History Type Description Quantity Date Captured [...]
--- OUTSIDE RECORDS SUMMARY | 2025-04-09 17:46 | XMS_ITS | Encounter Summary ---
Author Organization [facility] Address [address] [place], [place] [address] [address] Care Team Providers Care Teacher Hearing Impaired Name Role Phone Emma Diaz MD Primary Care Provider [phone] Emma Diaz MD Unavailable [phone] Encounter Details Date Type Department Care Team (Late st Contact Info) Description 03/02/2025 Results Follow-Up [facility] Medical [facility] - Pediatrics [address] [place] [phone] Emma Diaz MD [address] [place] [address] Social History Tobacco Use Types Packs/Day Years Used Date Smoking Tobacco: Never Smokeless Tobacco: Never Alcohol Use Standard Drinks/Week Comments No 0 (1 standard drink = 0.6 oz pur e alcohol) PHQ-2 Answer Date Recorded Patient Health Questionnaire-2 Score 0 11/19/2023 Comments Unknown Sex and Gender Information Value Date Recorded Sex Assigned at Not on file 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
--- OUTSIDE RECORDS SUMMARY | 2025-04-09 17:46 | XMS_ITS | Clinical Summary ---
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
--- OUTSIDE RECORDS SUMMARY | 2025-04-09 17:46 | XMS_ITS | Encounter Summary ---
Author Organization [facility] Address [address] [place] [address] [place] [address] Care Team Providers Care Rn Gastroenterology Name Role Phone Emma Diaz MD Primary Care Provider [phone] Emma Diaz MD Unavailable [phone] Reason for Visit * Reason Comments Medication Check control Encounter Details Date Type Department Care Team (Late st Contact Info) Description 04/08/2025 11:20 AM CDT Office Visit [facility] Medical [facility] - Pediatrics [address] [place] [address] [address] [place] [address] Emma Diaz MD [address] [place] [address] Anemia, unspecified type (Primary Dx); Syncope, [...] on file Legal Sex Female 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 Referred to Team Guide. Will refill for the next 6 months [...] Description 05/24/2025 3:30 PM CDT Office Visit [facility] - [address] [place] [phone] documented as of this encounter Goals Goal [...] POCT 9.3(A) 11.6 - 16.2 gm/dL [facility] QC Verified Yes Yes [facility] Blood BLOOD SPECIMEN / Unknown 04/08/2025 11:22 AM CDT Emma Diaz MD LAB - POINT OF CARE ORDERABLE S Final Result [facility] [address] [phone] documented in this encounter Visit Diagnoses Diagnosis Anemia, unspecified type- Primary Syncope, unspecified syncope type Closed fracture of left side of mandible with routine healing, unspecified mandibular site, subsequent encounter Dermatitis Contact dermatitis and other eczema, due to unspecified cause documented in this encounter Care Teams Rn Gastroenterology Relationship Specialty Start Date End Date Emma Diaz MD PCP - General 06/08/20 Emma Diaz MD Pediatrics 06/08/20 documented as of this encounter
--- OUTSIDE RECORDS SUMMARY | 2025-04-09 17:46 | XMS_ITS | Clinical Summary ---
Author Organization [facility] Address [address] [place] [address] Care Team Providers Care Java Software Developer Name Role Phone Emma Diaz MD Primary Care Provider [phone] Emma Diaz MD Unavailable [phone] Source Comments [facility],non-owned Affiliates and Associated Physician Practices is amultiple site organization consisting of ambulatory clinics and hospital sitesin [place], [place]. This disclosure is being madepursuant to the Care Everywhere program and may not contain all information available regarding this patient. Last updated 18.[facility] [employer] Allergies No known active allergies Medications * [...] Department Care Team Description 04/09/2025 Nurse Triage [address] [phone] Emma Diaz MD Follow-up 04/08/2025 11:20 AM CDT Office Visit [address] [phone] Emma Diaz MD Anemia, unspecified type (Primary Dx); Syncope, unspecified syncope type; Closed fracture of left side of mandible with routine healing, unspecified mandibular site, subsequent encounter; Dermatitis 03/02/2025 11:00 AM CDT Office Visit [address] [phone] Emma Diaz MD Well adolescent visit (Primary Dx); Syncope, unspecified syncope type; Anemia, unspecified type; Dermatitis; Closed fracture of left side of mandible with routine healing, unspecified mandibular site, subsequent encounter; Chronic abdominal pain 03/02/2025 Results Follow-Up [address] [phone] Emma Diaz MD 02/26/2025 Travel 02/16/2025 Travel 02/12/2025 Travel 02/12/2025 Nurse Triage [facility] - Pediatrics [address] [place] [phone] Emma Diaz MD Appointment 02/11/2025 Telephone [facility] [address] [place] [phone] Emma Diaz MD Appointment 02/08/2025 3:30 PM CDT Office Visit [facility] - [address] [phone] Emma Diaz MD Abdominal bloating (Primary Dx); Gastroesophageal reflux disease with esophagitis without hemorrhage; Generalized abdominal pain; Constipation, unspecified constipation type; Underweight (BMI < 18.5) 02/08/2025 Travel from Last 3 Months Immunizations Immunization Administration Dates Next Due [employer] [address] [employer] primary monoval ent 12+ yr 0.3mL Purple [...] on file Legal Sex Female 5:46 AM [employer]ATIC [employer] Gender Identity Not on file Sexual Orientation [...] Description 05/24/2025 3:30 PM CDT Office Visit [facility] - GI [address] [place] [address] Health Maintenance Due Date Last [...] 022 1:47 PM CDT) No 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 QC Verified Yes Yes [facility] Blood BLOOD SPECIMEN / Unknown 04/08/2025 11:22 AM CDT Emma Diaz MD LAB - POINT OF CARE ORDERABLE S Final Result Performing Organization Address City/[facility]/ZIP Co de Phone Number [facility] [address] [phone] * (ABNORMAL) HEMOGLOBIN - POINT OF CARE (AMB) (03/02/2025 11:26 AM CDT) [facility] Hemoglobin POCT 9.6(A) 12.0 - 15.0 gm/dL [facility] Blood BLOOD SPECIMEN / Unknown 03/02/2025 11:26 AM CDT Emma Diaz MD LAB - POINT OF CARE ORDERABLE S Final Result Performing Organization Address [facility] Co de Phone Number [facility] [address] [phone] * CELIAC DISEASE PROFILE W RFLX (02/17/2025 1:12 PM CDT) Pathologist [facility] Gliadin Deamidated Peptide Antibody IgA <1.0 U/mL [...] INSURANCE ON PHONE FASTING:NO Test Performed at: [facility] [address] [place] [address] ARETHA CHAVIS MD,PHD,TIMOTHY Blood BLOOD SPECIMEN / Unknown 02/17/2025 1:12 PM CDT 02/17/2025 1:13 PM CDT us Emma Diaz MD LAB - CHEMISTRY ORDERABLES nal Result [facility] [id number] [place] [address] from Last 3 Months Insurance [facility] Care Teams Java Software Developer Relationship Specialty Start Date End Date Emma Diaz MD PCP - General 06/08/20 Emma Diaz MD Pediatrics 06/08/20
== END 2025-04-09 18:07 | disposition home or self-care (01) ==
LOC: ANHED 17:45
PROVIDERS: Emergency Provider Emergency Medicine; PCP Pediatrics
DX: R55 Syncope and collapse (principal); D64.9 Anemia, unspecified
CPT/HCPCS: 36415; 71046; 80053; 81025; 85025; 85055; 93005; 96360; 99284; J7030